=== PATIENT | female | born 1955 | race Caucasian/White ===

== ENCOUNTER → 2021-07-30 | Outpatient (CLI) | payer MEDICARE | LOC: RESP 10:17 | PROVIDERS: ATTEND Internal Medicine Critical Care Medicine | DX: J44.9 Chronic obstructive pulmonary disease, unspecified (principal); R09.02 Hypoxemia; J98.11 Atelectasis; K21.9 Gastro-esophageal reflux disease without esophagitis; G47.00 Insomnia, unspecified; J45.909 Unspecified asthma, uncomplicated; E66.9 Obesity, unspecified | CPT/HCPCS: 94060; 94640 ==

== ENCOUNTER 2022-05-03 17:08 | Inpatient (IN) | payer MEDICARE, OTHER ==
[~2022-05-03] VITALS: Ht 147.3 cm; Wt 73.0 kg
[2022-05-03 18:58] LABS: BASOPHILS # (AUTO) 0.1 (0.0-0.1); BASOPHILS % 0.4 % (0.0-1.0); EOSINOPHILS # (AUTO) 0.1 (0.0-0.4); EOSINOPHILS % 0.8 % (0.0-6.0); HEMATOCRIT 38.8 % (34.2-44.1); HEMOGLOBIN 11.3 g/dL (12.0-16.0); LYMPHOCYTES # (AUTO) 1.5 (1.0-3.2); LYMPHOCYTES % 8.7 % (18.0-39.1); MEAN CORPUSCULAR HEMOGLOBIN 26.2 pg (28-32); MEAN CORPUSCULAR HGB CONC 29.1 g/dL (31-35); MONOCYTES # (AUTO) 1.5 (0.2-0.8); MONOCYTES % 8.9 % (4.4-11.3); NEUTROPHILS # (AUTO) 13.8 (2.1-6.9); NEUTROPHILS % 80.6 % (38.7-80.0); PLATELET COUNT 351 x10e3/uL (140-360); RED BLOOD COUNT 4.31 x10e6/uL (3.6-5.1); RED CELL DISTRIBUTION WIDTH 13.4 % (11.7-14.4)
[2022-05-03 19:19] LABS: ALBUMIN 4.1 g/dL (3.5-5.0); ALBUMIN/GLOBULIN RATIO 0.9 (0.8-2.0); ANION GAP 17.3 mmol/L (8-16); CREATININE, SERUM 1.39 mg/dL (0.57-1.11); POTASSIUM 4.3 mmol/L (3.5-5.1)
[2022-05-03] MEDS ORDERED: HYDROCODONE/APAP 5MG-325MG TAB PO ONE (19:45)
[2022-05-03] MEDS ORDERED: Doxycycline IV 100 MG in SODIUM CHLORIDE 0.9% 100 ML IV STA (20:01)
[2022-05-03] MEDS ORDERED: SODIUM CHLORIDE 0.9% 1000ML 1,000 ML IV SCH (20:30)
[2022-05-03] MEDS ORDERED: ASPIRIN 81 MG CHEW TAB PO ONE (21:00)
[2022-05-03 22:08] LABS: CREATINE KINASE MB 2.9 ng/mL (0-5.0)
[2022-05-03] MEDS ORDERED: ALBUTEROL/IPRATROPIUM 3 ML NEB NEB ONE (22:45)
[2022-05-03] MEDS ORDERED: ALBUTEROL/IPRATROPIUM 3 ML NEB ONE (22:51)
[2022-05-03] MEDS: Morphine 4mg INJECTION 4 MG/ML INJ IV PRN (22:54)
[2022-05-03] MEDS: ONDANSETRON HCL INJ 2MG/ML 2ML 2 MG/ML VIAL IV PRN (22:55)
[2022-05-04] VITALS (7 sets, daily range): BP systolic 104–124; BP diastolic 58–84
[2022-05-04] MEDS: Morphine 4mg INJECTION 4 MG/ML INJ IV PRN ×5 (02:45→20:46)
[2022-05-04] MEDS: ALBUTEROL/IPRATROPIUM 3 ML NEB NEB PRN ×2 (05:10→06:32)
[2022-05-04 05:54] LABS: BASOPHILS # (AUTO) 0.1 (0.0-0.1); BASOPHILS % 0.5 % (0.0-1.0); EOSINOPHILS # (AUTO) 0.3 (0.0-0.4); HEMATOCRIT 31.6 % (34.2-44.1); HEMOGLOBIN 9.2 g/dL (12.0-16.0); LYMPHOCYTES # (AUTO) 2.4 (1.0-3.2); LYMPHOCYTES % 25.6 % (18.0-39.1); MEAN CORPUSCULAR HEMOGLOBIN 26.4 pg (28-32); MEAN CORPUSCULAR HGB CONC 29.1 g/dL (31-35); MEAN CORPUSCULAR VOLUME 90.8 fL (81-99); MONOCYTES % 10.6 % (4.4-11.3); NEUTROPHILS # (AUTO) 5.7 (2.1-6.9); NEUTROPHILS % 59.9 % (38.7-80.0); PLATELET COUNT 311 x10e3/uL (140-360); RED BLOOD COUNT 3.48 x10e6/uL (3.6-5.1); RED CELL DISTRIBUTION WIDTH 13.4 % (11.7-14.4)
[2022-05-04] MEDS ORDERED: HYDROXYZINE HCL25 MG PO (06:14)
[2022-05-04] MEDS ORDERED: LATANOPROST2.5 ML OU (06:14)
[2022-05-04] MEDS ORDERED: SPIRONOLACTONE50 MG PO (06:14)
[2022-05-04] MEDS ORDERED: POTASSIUM CHLO10 ME1 PO (06:14)
[2022-05-04] MEDS ORDERED: LOPRESSOR25 MG PO (06:14)
[2022-05-04] MEDS ORDERED: ULTRAM 50MG50 MG PO (06:14)
[2022-05-04] MEDS ORDERED: FUROSEMIDE40 MG PO (06:14)
[2022-05-04] MEDS ORDERED: HYDROCODON-ACE1 EA11 PO (06:14)
[2022-05-04] MEDS ORDERED: IPRAT-ALBUT 0.5-3 ML INH (06:14)
[2022-05-04] MEDS ORDERED: PANTOPRAZOLE SO40 MG PO (06:14)
[2022-05-04] MEDS ORDERED: BUDESONIDE0.5 MG/2 M INH (06:14)
[2022-05-04 06:26] LABS: ANION GAP 13.1 mmol/L (8-16); CALCIUM 8.8 mg/dL (8.4-10.2); CREATININE, SERUM 1.35 mg/dL (0.57-1.11); POTASSIUM 4.1 mmol/L (3.5-5.1)
[2022-05-04] MEDS: ONDANSETRON HCL INJ 2MG/ML 2ML 2 MG/ML VIAL IV PRN ×4 (08:15→20:46)
[2022-05-04] MEDS ORDERED: LIDOCAINE PAIN1 EACH TOP (08:18)
[2022-05-04] MEDS: ALBUTEROL/IPRATROPIUM 3 ML NEB NEB SCH ×3 (09:00→19:35)
[2022-05-04] MEDS: POTASSIUM CHLORIDE 10MEQ EA PO SCH (09:41)
[2022-05-04] MEDS: METOPROLOL TARTRATE 25 MG TAB PO SCH ×2 (09:41→16:30)
[2022-05-04] MEDS: FUROSEMIDE 40 MG TAB PO SCH ×2 (09:42→16:29)
[2022-05-04] MEDS: DOXYCYCLINE HYCLATE TABLET 100 MG TAB PO SCH ×2 (09:42→16:29)
[2022-05-04] MEDS: SPIRONOLACTONE 25 MG TAB PO SCH (09:42)
[2022-05-04] MEDS: PANTOPRAZOLE SOD 40 MG TABEC PO SCH (09:42)
[2022-05-04] MEDS: METHYLPREDNISOLONE SOD SUCC 40 MG/ML VIAL 1ML IV SCH ×3 (09:43→21:04)
[2022-05-04] MEDS: BUDESONIDE 0.5MG/2 ML NEB INH SCH ×2 (13:00→19:50)
[2022-05-04 14:22] LABS: CREATINE KINASE MB 2.3 ng/mL (0-5.0)
[2022-05-04] MEDS: HYDROCODONE/APAP 5MG-325MG TAB PO PRN (14:37)
[2022-05-04] MEDS: ENOXAPARIN 30 MG/0.3 ML SYR SC SCH (16:29)
[2022-05-04] MEDS: HYDROXYZINE HCL 25 MG TAB PO SCH (20:52)
[2022-05-04] MEDS: LATANOPROST(OPTH) 2.5 ML BTL OU SCH (21:00)
[2022-05-05] VITALS (7 sets, daily range): BP systolic 101–137; BP diastolic 61–79
[2022-05-05] MEDS: MELATONIN 5 MG TABLET PO PRN (00:08)
[2022-05-05] MEDS: HYDROCODONE/APAP 5MG-325MG TAB PO PRN ×2 (00:09→09:20)
[2022-05-05] MEDS: ALBUTEROL/IPRATROPIUM 3 ML NEB NEB SCH ×4 (00:20→19:30)
[2022-05-05 06:00] LABS: BASOPHILS % 0.2 % (0.0-1.0); HEMATOCRIT 31.6 % (34.2-44.1); HEMOGLOBIN 9.6 g/dL (12.0-16.0); LYMPHOCYTES % 9.2 % (18.0-39.1); MEAN CORPUSCULAR HEMOGLOBIN 26.6 pg (28-32); MEAN CORPUSCULAR HGB CONC 30.4 g/dL (31-35); MEAN CORPUSCULAR VOLUME 87.5 fL (81-99); MONOCYTES # (AUTO) 0.3 (0.2-0.8); MONOCYTES % 2.6 % (4.4-11.3); NEUTROPHILS # (AUTO) 9.6 (2.1-6.9); NEUTROPHILS % 87.1 % (38.7-80.0); PLATELET COUNT 327 x10e3/uL (140-360); RED BLOOD COUNT 3.61 x10e6/uL (3.6-5.1); RED CELL DISTRIBUTION WIDTH 13.7 % (11.7-14.4)
[2022-05-05] MEDS: METHYLPREDNISOLONE SOD SUCC 40 MG/ML VIAL 1ML IV SCH ×3 (06:00→21:36)
[2022-05-05] MEDS: Morphine 4mg INJECTION 4 MG/ML INJ IV PRN ×4 (06:05→21:36)
[2022-05-05] MEDS: ONDANSETRON HCL INJ 2MG/ML 2ML 2 MG/ML VIAL IV PRN ×2 (06:06→21:37)
[2022-05-05 06:33] LABS: ANION GAP 16.6 mmol/L (8-16); CALCIUM 9.4 mg/dL (8.4-10.2); CREATININE, SERUM 1.44 mg/dL (0.57-1.11); POTASSIUM 4.6 mmol/L (3.5-5.1)
[2022-05-05] MEDS: PANTOPRAZOLE SOD 40 MG TABEC PO SCH (09:14)
[2022-05-05] MEDS: POTASSIUM CHLORIDE 10MEQ EA PO SCH (09:14)
[2022-05-05] MEDS: DOXYCYCLINE HYCLATE TABLET 100 MG TAB PO SCH ×2 (09:14→16:46)
[2022-05-05] MEDS: METOPROLOL TARTRATE 25 MG TAB PO SCH ×2 (09:14→16:47)
[2022-05-05] MEDS: FUROSEMIDE 40 MG TAB PO SCH (09:15)
[2022-05-05] MEDS: SPIRONOLACTONE 25 MG TAB PO SCH (09:15)
[2022-05-05] MEDS: ENOXAPARIN 30 MG/0.3 ML SYR SC SCH (16:47)
[2022-05-05] MEDS: LATANOPROST(OPTH) 2.5 ML BTL OU SCH (20:13)
[2022-05-05] MEDS: HYDROXYZINE HCL 25 MG TAB PO SCH (20:13)
[2022-05-06] VITALS (7 sets, daily range): BP systolic 119–157; BP diastolic 73–90
[2022-05-06] MEDS: ALBUTEROL/IPRATROPIUM 3 ML NEB NEB SCH ×4 (01:20→20:00)
[2022-05-06] MEDS: Morphine 4mg INJECTION 4 MG/ML INJ IV PRN ×4 (01:50→20:28)
[2022-05-06] MEDS: ONDANSETRON HCL INJ 2MG/ML 2ML 2 MG/ML VIAL IV PRN ×2 (01:50→11:00)
[2022-05-06] MEDS: METHYLPREDNISOLONE SOD SUCC 40 MG/ML VIAL 1ML IV SCH ×3 (06:00→21:06)
[2022-05-06 06:29] LABS: ANION GAP 14.8 mmol/L (8-16); CALCIUM 9.2 mg/dL (8.4-10.2); CREATININE, SERUM 1.3 mg/dL (0.57-1.11); POTASSIUM 4.8 mmol/L (3.5-5.1)
[2022-05-06] MEDS: BUDESONIDE 0.5MG/2 ML NEB INH SCH (07:21)
[2022-05-06] MEDS: PANTOPRAZOLE SOD 40 MG TABEC PO SCH (09:21)
[2022-05-06] MEDS: SPIRONOLACTONE 25 MG TAB PO SCH (09:21)
[2022-05-06] MEDS: DOXYCYCLINE HYCLATE TABLET 100 MG TAB PO SCH ×2 (09:21→16:47)
[2022-05-06] MEDS: POTASSIUM CHLORIDE 10MEQ EA PO SCH (09:21)
[2022-05-06] MEDS: FUROSEMIDE 40 MG TAB PO SCH (09:21)
[2022-05-06] MEDS: METOPROLOL TARTRATE 25 MG TAB PO SCH ×2 (09:22→16:47)
[2022-05-06] MEDS: HYDROCODONE/APAP 5MG-325MG TAB PO PRN ×2 (09:22→16:48)
[2022-05-06] MEDS: LIDOCAINE 4% PATCH TP SCH (11:00)
[2022-05-06] MEDS: ENOXAPARIN 30 MG/0.3 ML SYR SC SCH (16:47)
[2022-05-06] MEDS: LATANOPROST(OPTH) 2.5 ML BTL OU SCH (20:27)
[2022-05-06] MEDS: HYDROXYZINE HCL 25 MG TAB PO SCH (20:27)
[2022-05-06] MEDS: MELATONIN 5 MG TABLET PO PRN (21:12)
[2022-05-07] VITALS (8 sets, daily range): BP systolic 110–147; BP diastolic 58–80
[2022-05-07] MEDS: Morphine 4mg INJECTION 4 MG/ML INJ IV PRN ×4 (00:53→17:51)
[2022-05-07] MEDS: ALBUTEROL/IPRATROPIUM 3 ML NEB NEB SCH ×4 (02:10→19:25)
[2022-05-07] MEDS: METHYLPREDNISOLONE SOD SUCC 40 MG/ML VIAL 1ML IV SCH ×3 (05:06→22:37)
[2022-05-07] MEDS: BUDESONIDE 0.5MG/2 ML NEB INH SCH (07:20)
[2022-05-07 07:57] LABS: BASOPHILS % 0.2 % (0.0-1.0); HEMATOCRIT 34.9 % (34.2-44.1); HEMOGLOBIN 10.7 g/dL (12.0-16.0); LYMPHOCYTES # (AUTO) 1.3 (1.0-3.2); LYMPHOCYTES % 9.2 % (18.0-39.1); MEAN CORPUSCULAR HEMOGLOBIN 26.5 pg (28-32); MEAN CORPUSCULAR HGB CONC 30.7 g/dL (31-35); MEAN CORPUSCULAR VOLUME 86.4 fL (81-99); MONOCYTES # (AUTO) 0.4 (0.2-0.8); MONOCYTES % 2.8 % (4.4-11.3); NEUTROPHILS # (AUTO) 12.2 (2.1-6.9); PLATELET COUNT 360 x10e3/uL (140-360); RED BLOOD COUNT 4.04 x10e6/uL (3.6-5.1); RED CELL DISTRIBUTION WIDTH 14.1 % (11.7-14.4)
[2022-05-07] MEDS: HYDROCODONE/APAP 5MG-325MG TAB PO PRN ×3 (08:02→19:33)
[2022-05-07] MEDS: METOPROLOL TARTRATE 25 MG TAB PO SCH ×2 (08:57→16:49)
[2022-05-07] MEDS: SPIRONOLACTONE 25 MG TAB PO SCH (08:57)
[2022-05-07] MEDS: DOXYCYCLINE HYCLATE TABLET 100 MG TAB PO SCH ×2 (08:57→16:48)
[2022-05-07] MEDS: POTASSIUM CHLORIDE 10MEQ EA PO SCH (08:58)
[2022-05-07] MEDS: LIDOCAINE 4% PATCH TP SCH (08:59)
[2022-05-07] MEDS: FUROSEMIDE 40 MG TAB PO SCH (08:59)
[2022-05-07] MEDS: PANTOPRAZOLE SOD 40 MG TABEC PO SCH (08:59)
[2022-05-07] MEDS: ALBUTEROL/IPRATROPIUM 3 ML NEB NEB PRN (16:00)
[2022-05-07] MEDS: ENOXAPARIN 30 MG/0.3 ML SYR SC SCH (16:49)
[2022-05-07] MEDS: MELATONIN 5 MG TABLET PO PRN (20:37)
[2022-05-07] MEDS: HYDROXYZINE HCL 25 MG TAB PO SCH (20:37)
[2022-05-07] MEDS: LATANOPROST(OPTH) 2.5 ML BTL OU SCH (20:37)
[2022-05-08] VITALS (9 sets, daily range): BP systolic 117–159; BP diastolic 84–96
[2022-05-08] MEDS: ALBUTEROL/IPRATROPIUM 3 ML NEB NEB SCH ×4 (01:35→19:25)
[2022-05-08] MEDS: HYDROCODONE/APAP 5MG-325MG TAB PO PRN ×2 (02:17→21:27)
[2022-05-08] MEDS: Morphine 4mg INJECTION 4 MG/ML INJ IV PRN ×3 (04:54→16:20)
[2022-05-08] MEDS: METHYLPREDNISOLONE SOD SUCC 40 MG/ML VIAL 1ML IV SCH ×3 (05:13→21:21)
[2022-05-08] MEDS: BUDESONIDE 0.5MG/2 ML NEB INH SCH (07:02)
[2022-05-08] MEDS: POTASSIUM CHLORIDE 10MEQ EA PO SCH (09:08)
[2022-05-08] MEDS: METOPROLOL TARTRATE 25 MG TAB PO SCH ×2 (09:10→16:21)
[2022-05-08] MEDS: DOXYCYCLINE HYCLATE TABLET 100 MG TAB PO SCH ×2 (09:10→16:21)
[2022-05-08] MEDS: PANTOPRAZOLE SOD 40 MG TABEC PO SCH (09:10)
[2022-05-08] MEDS: SPIRONOLACTONE 25 MG TAB PO SCH (09:10)
[2022-05-08] MEDS: FUROSEMIDE 40 MG TAB PO SCH (09:11)
[2022-05-08] MEDS: LIDOCAINE 4% PATCH TP SCH (09:11)
[2022-05-08] MEDS: ALBUTEROL/IPRATROPIUM 3 ML NEB NEB PRN (11:03)
[2022-05-08] MEDS: ENOXAPARIN 30 MG/0.3 ML SYR SC SCH (16:21)
[2022-05-08] MEDS: LATANOPROST(OPTH) 2.5 ML BTL OU SCH (21:21)
[2022-05-08] MEDS: HYDROXYZINE HCL 25 MG TAB PO SCH (21:21)
[2022-05-08] MEDS: MELATONIN 5 MG TABLET PO PRN (21:27)
[2022-05-09] VITALS (8 sets, daily range): BP systolic 139–178; BP diastolic 84–98
[2022-05-09] MEDS: ALBUTEROL/IPRATROPIUM 3 ML NEB NEB SCH ×4 (01:35→19:00)
[2022-05-09] MEDS: Morphine 4mg INJECTION 4 MG/ML INJ IV PRN ×4 (01:44→20:11)
[2022-05-09] MEDS: METHYLPREDNISOLONE SOD SUCC 40 MG/ML VIAL 1ML IV SCH (05:29)
[2022-05-09 06:18] LABS: BASOPHILS # (AUTO) 0.1 (0.0-0.1); BASOPHILS % 0.6 % (0.0-1.0); HEMATOCRIT 35.3 % (34.2-44.1); HEMOGLOBIN 10.3 g/dL (12.0-16.0); LYMPHOCYTES # (AUTO) 1.3 (1.0-3.2); LYMPHOCYTES % 9.6 % (18.0-39.1); MEAN CORPUSCULAR HEMOGLOBIN 26.5 pg (28-32); MEAN CORPUSCULAR HGB CONC 29.2 g/dL (31-35); MONOCYTES # (AUTO) 0.7 (0.2-0.8); MONOCYTES % 5.3 % (4.4-11.3); NEUTROPHILS # (AUTO) 11.1 (2.1-6.9); NEUTROPHILS % 78.8 % (38.7-80.0); PLATELET COUNT 374 x10e3/uL (140-360); RED BLOOD COUNT 3.88 x10e6/uL (3.6-5.1); RED CELL DISTRIBUTION WIDTH 13.7 % (11.7-14.4)
[2022-05-09] MEDS: BUDESONIDE 0.5MG/2 ML NEB INH SCH (06:20)
[2022-05-09 06:39] LABS: CALCIUM 8.9 mg/dL (8.4-10.2); CREATININE, SERUM 1.2 mg/dL (0.57-1.11)
[2022-05-09] MEDS: FUROSEMIDE 40 MG TAB PO SCH (08:40)
[2022-05-09] MEDS: SPIRONOLACTONE 25 MG TAB PO SCH (08:40)
[2022-05-09] MEDS: POTASSIUM CHLORIDE 10MEQ EA PO SCH (08:40)
[2022-05-09] MEDS: METOPROLOL TARTRATE 25 MG TAB PO SCH ×2 (08:41→15:59)
[2022-05-09] MEDS: DOXYCYCLINE HYCLATE TABLET 100 MG TAB PO SCH ×2 (08:41→15:45)
[2022-05-09] MEDS: LIDOCAINE 4% PATCH TP SCH (08:41)
[2022-05-09] MEDS: PANTOPRAZOLE SOD 40 MG TABEC PO SCH (08:41)
[2022-05-09] MEDS: HYDROCODONE/APAP 5MG-325MG TAB PO PRN ×2 (08:45→14:47)
[2022-05-09] MEDS ORDERED: PREDNISONE 10 MG TAB PO SCH (09:00)
[2022-05-09] MEDS ORDERED: ONDANSETRON HCL 4 MG ORAL DISINTEGRATING TAB PO PRN (11:15)
[2022-05-09] MEDS: ENOXAPARIN 30 MG/0.3 ML SYR SC SCH (15:45)
[2022-05-09] MEDS: HYDROXYZINE HCL 25 MG TAB PO SCH (20:00)
[2022-05-09] MEDS: LATANOPROST(OPTH) 2.5 ML BTL OU SCH (20:02)
[2022-05-09] MEDS: ALBUTEROL/IPRATROPIUM 3 ML NEB NEB PRN (23:15)
[2022-05-10] VITALS (7 sets, daily range): BP systolic 117–170; BP diastolic 61–97
[2022-05-10] MEDS: Morphine 4mg INJECTION 4 MG/ML INJ IV PRN ×3 (00:43→18:26)
[2022-05-10] MEDS: ALBUTEROL/IPRATROPIUM 3 ML NEB NEB SCH ×4 (02:00→19:50)
[2022-05-10] MEDS: ALBUTEROL/IPRATROPIUM 3 ML NEB NEB PRN (04:30)
[2022-05-10] MEDS: HYDROCODONE/APAP 5MG-325MG TAB PO PRN ×3 (05:03→22:12)
[2022-05-10] MEDS: BUDESONIDE 0.5MG/2 ML NEB INH SCH (07:25)
[2022-05-10] MEDS ORDERED: FLUCONAZOLE 100 MG TAB PO ONE (09:00)
[2022-05-10] MEDS ORDERED: TRIAMCINOLONE ACET 40 MG/ML VIAL IM ONE (09:00)
[2022-05-10] MEDS: POTASSIUM CHLORIDE 10MEQ EA PO SCH (09:43)
[2022-05-10] MEDS: SPIRONOLACTONE 25 MG TAB PO SCH (09:43)
[2022-05-10] MEDS: NYSTATIN SUSPENSION 5 ML UDC PO SCH ×4 (09:44→23:38)
[2022-05-10] MEDS: METOPROLOL TARTRATE 25 MG TAB PO SCH ×2 (09:44→17:17)
[2022-05-10] MEDS: PANTOPRAZOLE SOD 40 MG TABEC PO SCH (09:44)
[2022-05-10] MEDS: DOXYCYCLINE HYCLATE TABLET 100 MG TAB PO SCH ×2 (09:55→17:16)
[2022-05-10] MEDS: LIDOCAINE 4% PATCH TP SCH (09:55)
[2022-05-10] MEDS: FUROSEMIDE 40 MG TAB PO SCH (10:11)
[2022-05-10] MEDS: METHYLPREDNISOLONE SOD SUCC 40 MG/ML VIAL 1ML IV SCH ×2 (15:18→22:04)
[2022-05-10] MEDS: ENOXAPARIN 30 MG/0.3 ML SYR SC SCH (17:16)
[2022-05-10] MEDS: HYDROXYZINE HCL 25 MG TAB PO SCH (22:04)
[2022-05-10] MEDS: MELATONIN 5 MG TABLET PO PRN (22:11)
[2022-05-10] MEDS: LATANOPROST(OPTH) 2.5 ML BTL OU SCH (22:12)
[2022-05-11] VITALS: BP 147/89
[2022-05-11] MEDS: ALBUTEROL/IPRATROPIUM 3 ML NEB NEB SCH ×2 (00:27→07:25)
[2022-05-11 04:00] VITALS: BP 167/89
[2022-05-11] MEDS: NYSTATIN SUSPENSION 5 ML UDC PO SCH (05:03)
[2022-05-11] MEDS: HYDROCODONE/APAP 5MG-325MG TAB PO PRN (05:03)
[2022-05-11] MEDS: METHYLPREDNISOLONE SOD SUCC 40 MG/ML VIAL 1ML IV SCH (05:04)
[2022-05-11] MEDS: BUDESONIDE 0.5MG/2 ML NEB INH SCH (07:40)
[2022-05-11 08:08] VITALS: BP 151/86
[2022-05-11 08:22] VITALS: BP 151/86
[2022-05-11] MEDS: POTASSIUM CHLORIDE 10MEQ EA PO SCH ×2 (09:00→09:05)
[2022-05-11] MEDS ORDERED: FLUCONAZOLE 100 MG TAB PO SCH (09:00)
[2022-05-11] MEDS: METOPROLOL TARTRATE 25 MG TAB PO SCH (09:03)
[2022-05-11] MEDS: DOXYCYCLINE HYCLATE TABLET 100 MG TAB PO SCH (09:04)
[2022-05-11] MEDS: FUROSEMIDE 40 MG TAB PO SCH (09:05)
[2022-05-11] MEDS: LIDOCAINE 4% PATCH TP SCH (09:05)
[2022-05-11] MEDS: SPIRONOLACTONE 25 MG TAB PO SCH (09:06)
[2022-05-11] MEDS: PANTOPRAZOLE SOD 40 MG TABEC PO SCH (09:06)
[2022-05-11] MEDS ORDERED: HYDROCODONE/APAP 5MG-325MG TAB PO ONE (10:00)
[2022-05-11] MEDS: ALBUTEROL/IPRATROPIUM 3 ML NEB NEB PRN (11:16)
== END 2022-05-11 12:26 | disposition hospice, inpatient (51) | DRG 602 ==
LOC: ER 17:48 → ERHOLD 20:52 → MED/SURG3 23:48 → OBSVTOIN 05-04 08:50
PROVIDERS: ADMIT Internal Medicine; ATTEND Internal Medicine
DX: L03.115 Cellulitis of right lower limb (principal); J18.9 Pneumonia, unspecified organism; J44.1 Chronic obstructive pulmonary disease with (acute) exacerbation; J44.0 Chronic obstructive pulmonary disease with (acute) lower respiratory infection; I11.0 Hypertensive heart disease with heart failure; I50.9 Heart failure, unspecified; Z99.81 Dependence on supplemental oxygen; J44.9 Chronic obstructive pulmonary disease, unspecified; K21.9 Gastro-esophageal reflux disease without esophagitis; R09.02 Hypoxemia; F41.9 Anxiety disorder, unspecified; E66.9 Obesity, unspecified; F32.9 Major depressive disorder, single episode, unspecified; Z90.49 Acquired absence of other specified parts of digestive tract; Z87.891 Personal history of nicotine dependence; Z87.442 Personal history of urinary calculi; Z88.0 Allergy status to penicillin; Z88.8 Allergy status to other drugs, medicaments and biological substances; Z20.822 Contact with and (suspected) exposure to COVID-19; Z68.33 Body mass index [BMI] 33.0-33.9, adult
CPT/HCPCS: 36415; 71045; 80048; 80053; 82550; 82553; 83605; 83880; 84484; 85025; 87040; 93005; 94640; 94799; 99284; G0378; J0696; J1650; J2270; J2405; J2920; J3301; J3410; J7030; J7050; J7512